=== PATIENT | male | born 1960 | race Caucasian/White ===

== ENCOUNTER 2020-08-10 11:12 | Outpatient (CLI) | payer OTHER ==
[2020-08-10 20:44] LABS: SARS-CoV-2 PCR by NAA Not Detected (NotDetected)
== END 2020-08-10 11:13 | disposition home or self-care (01) ==
LOC: CSHLAB 11:12
PROVIDERS: ATTEND Neurological Surgery
DX: Z20.822 Contact with and (suspected) exposure to COVID-19 (principal); M54.16 Radiculopathy, lumbar region
CPT/HCPCS: 87635; U0003; U0005